=== PATIENT | female | born 1935 | race Caucasian/White ===

== ENCOUNTER 2024-03-31 15:45 | Inpatient (IN) | payer OTHER ==
[2024-03-31] MEDS ORDERED: NA CHLORIDE 0.9% 500 ML ONE (16:09)
[2024-03-31 16:48] LABS: Absolute Basophils 0.1 K/uL (0-0.5); Absolute Eosinophils 0.1 K/uL (0-0.5); Absolute Lymphocytes (CBC) 2.6 K/uL (0.7-4.9); Absolute Monocytes 1.3 K/uL (0.1-1.3); Absolute Neutrophil 9.4 K/uL (1.8-8.0); Basophils % 0.5 % (0-1.3); Eosinophils % 1.1 % (0-4.4); Hematocrit 42.3 % (36.0-45.0); Hemoglobin 13.7 g/dL (12.0-15.0); Lymphocytes % 19.4 % (15.3-44.8); MCH 28.6 pg (27.0-35.0); MCHC 32.5 g/dL (32.0-36.0); MPV 9.1 fL (7.6-11.3); Monocytes % 9.9 % (3.3-12.3); Neutrophils % 69.1 % (41.7-73.7); Nucleated Red Blood Cells % 0.2 % (0-0); Platelets 297 thou/uL (152-406); Red Cell Distribution Width 15.4 % (12.1-15.2)
[2024-03-31 17:07] LABS: ALT/SGPT 16 U/L (13-56); Albumin 3.5 g/dL (3.4-5.0); Albumin/Globulin Ratio 1.1 (1.1-1.8); Alkaline Phosphatase 97 U/L (45-117); Anion Gap 9.8 mEq/L (5.0-15.0); BUN Blood Urea Nitrogen 12 mg/dL (7-18); Bicarbonate 28 mEq/L (21-32); Bilirubin Total 0.8 mg/dL (0.2-1.0); Globulin 3.3 g/dL (2.3-3.5); Glomerular Filtration Rate 30 ml/min (=/>90); Glucose Level 309 mg/dL (74-106); Magnesium 2.1 mg/dL (1.6-2.4); NT PRO-BNP 4009 pg/mL (<450); Potassium 3.8 mEq/L (3.5-5.1); Protein, Total 6.8 g/dL (6.4-8.2); Sodium Level 137 mEq/L (136-145); Troponin High Sensitivity 33.9 pg/mL (<58.9)
[2024-03-31 17:08] LABS: AST/SGOT < 10 U/L (15-37)
--- NOTE | 2024-03-31 17:55 | EDPHYS ---
Physician Documentation [facility] Name: Hong Groves Age: 89 yrs Sex: Female : 1935 Arrival Date: 03/31/2024 Time: 15:45 Bed 3 Private MD: ED Physician Lauren Vidales HPI: 03/31 16:18 This 89 yrs old Female presents to ER via Wheelchair with complaints of Weakness - sd2 altered and sweaty. 16:18 89 yo F presents with CC of generalized weakness. Family at reports patient was sd2 sitting down eating a sandwich and became generally weak and sweaty. Upon arrival, patient's blood pressure reported to be low at 57/45. Pt is on BP medication with no recent changes and has taken her medication today. Denies any fever or recent illness aside from a cough 2 days ago. No known sick contacts. No n/v/d or urinary symptoms.. Historical: - Allergies: 16:22 Aspirin; rs5 - PMHx: 16:22 ANGIOEDEMA; Atrial Fib; Hyperlipidemia; Hypertension; Dementia; Diabetes mellitus; rs5 - PSHx: 16:22 pacemaker (Hypertension); rs5 - Immunization history:: Adult Immunizations up to date. - Infectious Disease History:: Denies. - Social history:: Smoking status: . ROS: 16:18 Constitutional: Negative for fever, chills, and weight loss, Eyes: Negative for injury, sd2 pain, redness, and discharge, Cardiovascular: Negative for chest pain, palpitations, and edema, Respiratory: Negative for shortness of breath, wheezing, positive for cough Abdomen/GI: Negative for abdominal pain, nausea, vomiting, diarrhea. MS/Extremity: Negative for injury and deformity, Skin: Negative for injury, rash, and discoloration, Neuro: Negative for headache, numbness and tingling. Positive for weakness. Exam: 16:18 Constitutional: This is a well developed, well nourished patient who is awake, alert, sd2 and in no acute distress. Head/Face: Normocephalic, atraumatic. Eyes: EOMI, normal conjunctiva bilaterally Chest/axilla: Normal chest wall appearance and motion. Nontender with no deformity. Cardiovascular: Regular rate and rhythm with a normal S1 and S2. No gallops, murmurs, or rubs. 2+ distal pulses. Respiratory: Lungs have equal breath sounds bilaterally, clear to auscultation and percussion. No rales, rhonchi or wheezes noted. No increased work of breathing, no retractions or nasal flaring. Abdomen/GI: Soft, non-tender, with normal bowel sounds. No guarding or rebound. No evidence of tenderness throughout. Skin: Warm, dry with normal turgor. Normal color with no rashes, no lesions, and no evidence of cellulitis. MS/ Extremity: Pulses equal, no cyanosis. Neurovascular intact. Full, normal range of motion. Neuro: Awake and alert, GCS 15, oriented to person, place, time, and situation. Cranial nerves II-XII grossly intact. Motor strength 5/5 in all extremities. Sensory grossly intact. Cerebellar exam normal. Psych: Awake, alert, with orientation to person, place and time. Behavior, mood, and affect are within normal limits. 16:18 ECG was reviewed by the Attending Physician. A-fib, rate 66, no STEMI criteria or ST-T wave changes Vital Signs: 15:59 BP 57 / 45; Pulse 67; Weight 59.87 kg; Height 5 ft. 6 in. ; ap3 16:21 BP 94 / 65; Pulse 74; Resp 18; Pulse Ox 98% on R/A; rs5 17:00 BP 102 / 62; Pulse 62; Resp 16; Pulse Ox 100% on R/A; ph 17:30 BP 98 / 61; Pulse 61; Resp 18; Pulse Ox 99% on R/A; ph 18:00 BP 105 / 65; Pulse 61; Resp 18; Pulse Ox 100% on R/A; ph 18:30 BP 112 / 71; Pulse 61; Resp 18; Pulse Ox 99% on R/A; ph 18:58 BP 110 / 71; Pulse 61; Resp 18; Pulse Ox 99% on R/A; ph 21:23 BP 117 / 80; Pulse 68; Resp 17; Temp 98.2; Pulse Ox 99% ; Pain 0/10; bm8 15:59 Body Mass Index 21.31 (59.87 kg, 167.64 cm) ap3 21:23 Pain Scale: Adult bm8 Alden Coma Score: 21:23 Eye Response: spontaneous(4). Motor Response: obeys commands(6). Verbal Response: bm8 oriented(5). Total: 15. MDM: 16:07 Patient medically screened. sd2 16:21 Data reviewed: vital signs, nurses notes, lab test result(s), EKG, radiologic studies. sd2 16:23 Historians other than the Patient: Daughter/Son: provides further history at . sd2 17:50 Care significantly affected by the following chronic conditions: Diabetes, sd2 Hypertension, Congestive Heart Failure, Dementia. Counseling: I had a detailed discussion with the patient and/or guardian regarding the historical points, exam findings, and any diagnostic results supporting the discharge/admit diagnosis, lab results, radiology results, the need for further work-up and treatment in the hospital. ED course: Presentation consistent with CHF exacerbation with elevated BNP. However, with borderline blood pressures, no further IVFs given or diuresis. Pt to be admitted for further management at this time. . 17:54 ED course: No signs of infectious process at this time to indicate need for continued sd2 sepsis workup. Bolus held due to fluid overload and MAP maintaining at 75. . 03/31 16:18 Order name: CBC with Diff; Complete Time: 17:09 sd2 03/31 16:18 Order name: CMP; Complete Time: 17:09 sd2 03/31 16:18 Order name: Magnesium; Complete Time: 17:09 sd03/31 16:18 Order name: Troponin High Sensitivity; Complete Time: 17:09 sd2 03/31 16:18 Order name: BNP; Complete Time: 17:09 sd2 03/31 16:18 Order name: Lactate w/ 2H reflex if indic.; Complete Time: 17:31 03/31 16:18 Order name: Procalcitonin; Complete Time: 17:31 sd2 03/31 16:18 Order name: Urinalysis w/ reflexes sd2 03/31 16:18 Order name: Glucose, Ancillary Testing; Complete Time: 17:09 EDMS 03/31 19:11 Order name: Ghost Lactate-NO COLLECT Timer EDMS 03/31 19:45 Order name: Lactate w/ 2H reflex if indic. kd3 03/31 20:47 Order name: Lactate Sepsis 2 HR Follow-up EDMS 03/31 16:18 Order name: XRAY Chest (1 view) sd2 03/31 16:18 Order name: EKG - Nurse/Tech; Complete Time: 16:25 sd2 03/31 16:18 Order name: Orthostatics; Complete Time: 21:22 sd2 Administered Medications: 16:25 Drug: NS 0.9% IV 500 ml IV at bolus once Route: IV; Rate: bolus; Site: left antecubital;rs5 21:22 Follow up: Response: No adverse reaction; IV Status: Completed infusion; IV Intake: bm8 500ml Disposition Summary: 03/31/24 17:54 Hospitalization Ordered Notes: Hospitalization Status: Inpatient Admission sd2 Provider: Kristi Simons sd2 Location: Telemetry/MedSurg (Inpatient) sd2 Condition: Stable sd2 Problem: new sd2 Symptoms: have improved sd2 Bed/Room Type: [facility] Room Assignment: 415(03/31/24 21:08) Diagnosis - CHF Exacerbation sd2 - Hypotension sd2 - Lactic acidosis sd2 Forms: - Medication Reconciliation Form sd2 - SBAR form sd2 - Leadership Thank You Letter sd2 Signatures: Dispatcher [employer] EDJudith Espino, KULDEEP RN Lauren Mccray MD MD sd2 Wilton Harper RN RN rs5 Mike Rojo RN bm8 Corrections: (The following items were deleted from the chart) 16:19 16:19 CBC+H.LAB.BRZ ordered. EDMS EDMS 16:19 16:19 COMPREHENSIVE METABOLIC PANEL+C.LAB.BRZ ordered. EDMS EDMS 16:19 16:19 MAGNESIUM+C.LAB.BRZ ordered. EDMS EDMS 16:19 16:19 Troponin High Sensitivity+C.LAB.BRZ ordered. EDMS EDMS 16:19 16:19 PROBNP+C.LAB.BRZ ordered. EDMS EDMS 16:19 16:19 LACTATE+C.LAB.BRZ ordered. EDMS EDMS 16:19 16:19 PCT+C.LAB.BRZ ordered. EDMS EDMS 16:19 16:19 Urinalysis+U.LAB.BRZ ordered. EDMS EDMS 16:19 16:19 Chest Single View+RAD.RAD.BRZ ordered. EDMS EDMS 21:08 17:54 sd2 kl
--- NOTE | 2024-03-31 17:55 | ER ---
Nurse's Notes [facility] Name: Hong Groves Age: 89 yrs Sex: Female : 1935 Arrival Date: 03/31/2024 Time: 15:45 Bed 3 Private MD: Diagnosis: CHF Exacerbation;Hypotension;Lactic acidosis Presentation: 03/31 15:59 Acuity: ARIANNE 2 ap3 16:07 Chief complaint: Patient's son or daughter states: patient has been getting ap3 increasingly weak over the last few days and sleeping a lot more that normal, but today after having a peanut butter and jelly sandwhich she was increasingly weak. Coronavirus screen: At this time, the client does not indicate any symptoms associated with coronavirus-19. Ebola Screen: No symptoms or risks identified at this time. Initial Sepsis Screen: Does the patient meet any 2 criteria? Systolic BP < 90 mmHg. Mean Arterial Pressure (MAP) < 65. Risk Assessment: Do you want to hurt yourself or someone else? Patient reports no desire to harm self or others. Onset of symptoms is unknown. 16:07 Method Of Arrival: Wheelchair ap3 16:07 Initial Sepsis Screen: Does the patient have a suspected source of infection? No. rs5 Patient's initial sepsis screen is negative. 18:59 Initial Sepsis Screen: Does the patient have a suspected source of infection? No. ph Patient's initial sepsis screen is negative. Triage Assessment: 16:08 General: Appears distressed, ill, Behavior is quiet. Neuro: Level of Consciousness is ap3 lethargic, Oriented to person, Weakness Reports weakness. Cardiovascular: Patient's skin is warm and dry. Respiratory: Airway is patent Respiratory effort is even, unlabored, Respiratory pattern is regular, symmetrical. Derm: Skin is diaphoretic. Historical: - Allergies: 16:22 Aspirin; rs5 - PMHx: 16:22 ANGIOEDEMA; Atrial Fib; Hyperlipidemia; Hypertension; Dementia; Diabetes mellitus; rs5 - PSHx: 16:22 pacemaker (Hypertension); rs5 - Immunization history:: Adult Immunizations up to date. - Infectious Disease History:: Denies. - Social history:: Smoking status: . Screenin:00 [facility] ED Fall Risk Assessment (Adult) History of falling in the last 3 months, rs5 including since admission No falls in past 3 months (0 pts) Confusion or Disorientation No (0 pts) Intoxicated or Sedated No (0 pts) Impaired Gait No (0 pts) Mobility Assist Device Used No (0 pt) Altered Elimination No (0 pt) Score/Fall Risk Level 0 - 2 = Low Risk Oriented to surroundings, Maintained a safe environment. Abuse screen: Denies threats or abuse. Nutritional screening: No deficits noted. Tuberculosis screening: No symptoms or risk factors identified. Assessment: 16:00 General: Appears in no apparent distress. uncomfortable, Behavior is calm, cooperative. rs5 Pain: Denies pain. Neuro: Level of Consciousness is awake, alert, obeys commands, Oriented to person, place, time, situation. Cardiovascular: Patient's skin is warm and dry. Respiratory: Airway is patent Respiratory effort is even, unlabored, Respiratory pattern is regular, symmetrical. GI: Abdomen is round non-distended, Abd is soft and non tender X 4 quads. GI: Reports bloody stool. : No signs and/or symptoms were reported regarding the genitourinary system. EENT: No signs and/or symptoms were reported regarding the EENT system. Derm: Skin is intact, Skin is pink, warm \T\ dry. Musculoskeletal: Range of motion: intact in all extremities, pt reports generalized weakness. 18:57 Reassessment: Patient appears in no apparent distress at this time. Patient and/or ph family updated on plan of care and expected duration. Pain level reassessed. 21:23 Reassessment: Patient appears in no apparent distress at this time. No changes from bm8 previously documented assessment. Patient and/or family updated on plan of care and expected duration. Pain level reassessed. Patient is alert, oriented x 3, equal unlabored respirations, skin warm/dry/pink. Patient denies pain at this time. Patient states feeling better. Patient states symptoms have improved. Vital Signs: 15:59 BP 57 / 45; Pulse 67; Weight 59.87 kg; Height 5 ft. 6 in. ; ap3 16:21 BP 94 / 65; Pulse 74; Resp 18; Pulse Ox 98% on R/A; rs5 17:00 BP 102 / 62; Pulse 62; Resp 16; Pulse Ox 100% on R/A; ph 17:30 BP 98 / 61; Pulse 61; Resp 18; Pulse Ox 99% on R/A; ph 18:00 BP 105 / 65; Pulse 61; Resp 18; Pulse Ox 100% on R/A; ph 18:30 BP 112 / 71; Pulse 61; Resp 18; Pulse Ox 99% on R/A; ph 18:58 BP 110 / 71; Pulse 61; Resp 18; Pulse Ox 99% on R/A; ph 21:23 BP 117 / 80; Pulse 68; Resp 17; Temp 98.2; Pulse Ox 99% ; Pain 0/10; bm8 15:59 Body Mass Index 21.31 (59.87 kg, 167.64 cm) ap3 21:23 Pain Scale: Adult bm8 Alden Coma Score: 21:23 Eye Response: spontaneous(4). Motor Response: obeys commands(6). Verbal Response: bm8 oriented(5). Total: 15. ED Course: 15:48 Patient arrived in ED. ra3 15:59 Triage completed. ap3 16:00 Patient has correct armband on for positive identification. Placed in gown. Bed in low rs5 position. Call light in reach. Side rails up X2. 16:00 No provider procedures requiring assistance completed. rs5 16:07 Lauren Vidales MD is Attending Physician. sd2 16:19 Wilton Harper, RN is Primary Nurse. rs5 16:25 Initial lab(s) drawn, by me, sent to lab. EKG done, by ED staff, reviewed by Wilton Harper RN. Inserted saline lock: 18 gauge in left antecubital area, using aseptic technique. Blood collected. Flushed with 10 mL NS. 16:38 Arm band placed on Patient placed in an exam room, on a stretcher, on academic dean, ph on pulse oximetry. 17:23 XRAY Chest (1 view) In Process Unspecified. EDMS 17:53 Kristi Simons MD is Hospitalizing Provider. sd2 18:59 Patient admitted, IV remains in place. ph 19:21 Primary Nurse role handed off by Wilton Harper, KULDEEP ty 19:37 Claribel Ngo, KULDEEP is Primary Nurse. kd3 22:06 Provided Education on: need for admission. jb4 Administered Medications: 16:25 Drug: NS 0.9% IV 500 ml IV at bolus once Route: IV; Rate: bolus; Site: left antecubital;rs5 21:22 Follow up: Response: No adverse reaction; IV Status: Completed infusion; IV Intake: bm8 500ml Medication: 16:38 VIS not applicable for this client. ph Intake: 21:22 IV: 500ml; Total: 500ml. bm8 Outcome: 17:54 Decision to Hospitalize by Provider. sd2 22:06 Admitted to Tele accompanied by nurse, via stretcher, room 415, jb4 22:06 Condition: stable 22:06 Instructed on the need for admit, 22:07 Patient left the ED. jb4 Signatures: Dispatcher [employer] EDMS Suzan Hart RN RN Jignesh Aaron, RN RN jb4 Ellie Adame RN RN [email or web address] Claribel Ngo RN RN [email or web address] Lauren Vidales MD MD sd2 Wilton Harper, RN RN rs5 Janet Albrecht Tylor ty McDonald, Brad RN RN bm8
--- NOTE | 2024-03-31 18:42 | RAD REPORT ---
EXAM DESCRIPTION: BRANDONChest Single View03/31/2024 5:21 pm CLINICAL HISTORY: hypotension COMPARISON: Chest Single View dated 11/20/2016; Chest Single View dated 02/06/2016; CHEST SINGLE VIEW d ated 08/09/2015; CHEST SINGLE VIEW dated 08/16/2014 TECHNIQUE: Portable AP view of the chest. FINDINGS: The lungs are clear. No pneumothorax or effusion. The cardiomediastinal contours are unre markable. IMPRESSION: No acute cardiopulmonary process.
--- NOTE | 2024-03-31 20:47 | P.HP ---
Certification for Inpatient With expected LOS: >2 Midnights Practitioner: I am a practitioner with admitting privileges, knowledge of patient current condition, hospital course, and medical plan of care. Services: Services provided to patient in accordance with Admission requirements found in Title 42 Section 412.3 of the Code of Federal Regulations Patient History Date of Service: 03/31/24 Reason for admission: weakness History of Present Illness: 89-year-old female with history of congestive heart failure, pacemaker placement, atrial fibrillation, hyperlipidemia, dementia presented via wheelchair with complaints of weakness. Daughter and patient live in a hotel. She reports that earlier today patient was seen slumped over clammy and appeared pale. She denies any fevers. But she does report having some dizziness and shortness of breath. Patient also reported having episode of loose stool and diarrhea. In the ER on arrival patient was noted to be hypotensive. Fluids were given. There was also concern for CHF exacerbation. She is being admitted for further workup Allergies aspirin Allergy (Verified 06/02/14 02:05) Anaphylaxis Home Medications: Clopidogrel Bisulfate [Plavix*] 75 mg PO DAILY 06/03/14 Furosemide [Lasix*] 40 mg PO DAILY 06/03/14 Simvastatin 40 mg PO BEDTIME 06/03/14 Metoprolol Succinate [Toprol Xl*] 50 mg PO DAILY 08/16/14 Amlodipine [Norvasc] 10 mg PO DAILY #90 tab 11/21/16 cloNIDine HCL [Catapres*] 0.1 mg PO TID #270 tab 11/21/16 - Past Medical/Surgical History Diabetic: No -: HTN -: Afib -: CAD -: high cholesterol -: skin Cancer -: cardiac stent x2 -: hysterectomy -: benign tumors removed L breast -: carpal tunnel sx nikita wrists -: foriegn object removed from stomach as child -: arthoscopic sx nikita knee sx -: benign brain tumor removed - Family History Father -: Heart disease, GI disease Mother -: Heart disease - Social History Alcohol use: Yes CD- Drugs: No Caffeine use: Yes Review of Systems 10-point ROS is otherwise unremarkable Respiratory: Shortness of Breath Neurological: Weakness Physical Examination - Physical Exam General: Alert, Oriented x2 (person and place) HEENT: Atraumatic, Normocephalic Neck: Supple Respiratory: Clear to auscultation bilaterally Cardiovascular: No edema, Normal pulses Gastrointestinal: Soft and benign, Non-distended Musculoskeletal: No clubbing, No swelling Integumentary: No rashes Neurological: Normal speech - Studies Laboratory Data (last 24 hrs) 03/31/24 03/31/24 16:25 16:25 WBC 13.50 H Hgb 13.7 Hct 42.3 Plt Count 297 Sodium 137 Potassium 3.8 BUN 12 Creatinine 1.64 H Glucose 309 H Magnesium 2.1 Total Bilirubin 0.8 AST < 10 L ALT 16 Alkaline Phosphatase 97 Assessment and Plan - Problems (Diagnosis) (1) Weakness Current Visit: Yes Status: Acute (2) CHF (congestive heart failure) Current Visit: Yes Status: Acute (3) Leukocytosis Current Visit: Yes Status: Acute - Plan 89-year-old female presented from home with complaints of not feeling well, and hypotension. Weakness --could be 2/2 poor PO intake, volume depletion, history of diarrhea --consult PT OT when more stable Leukocytosis --await UA, cxr clear, afebrile --recent diarrhea Diabetes --fsbs, ssi Hypotension --could be 2/2 volume depletion --improved after 500cc bolus in ED --keep on telemetry CHF Elevated BNP --Chest x-ray showed no acute cardiopulmonary process history of dementia --mental status at baseline IVY/CKD --unclear baseline creat --repeat labs in AM DVT: Lovenox Code:full - Advance Directives Does patient have a Living Will: Yes Does patient have a Durable POA for Healthcare: Yes
[2024-03-31] MEDS ORDERED: ACETAMINOPHEN 500 MG TAB PO PRN (22:24)
[2024-03-31 22:34] VITALS: BMI 21.2
[2024-04-01 06:25] LABS: Calcium Oxalate Crystals- Ur Many /HPF (None Seen); Sqamous Epithelial <5 /HPF (None Seen); Urine Bacteria 20-50 /HPF (<20); Urine Bilirubin NEGATIVE (Negative); Urine Blood Negative (Negative); Urine Clarity Extremely Turbid (Clear); Urine Color Yellow (Yellow); Urine Culture Reflex Order NOT NEEDED; Urine Glucose 1+ (Negative); Urine Ketones NEGATIVE (Negative); Urine Microscopic Reflex YN ORDER UMIC; Urine Mucus Slight /HPF (None Seen); Urine Nitrite NEGATIVE (Negative); Urine Protein 1+ (Negative); Urine RBC None Seen /HPF (None Seen); Urine Urobilinogen Normal (Normal); Urine WBC <5 /HPF (<5); Urine pH 5.5 (5.0-7.0)
[2024-04-01 06:34] LABS: Absolute Basophils 0.1 K/uL (0-0.5); Absolute Eosinophils 0.2 K/uL (0-0.5); Absolute Lymphocytes (CBC) 2.7 K/uL (0.7-4.9); Absolute Monocytes 1.2 K/uL (0.1-1.3); Absolute Neutrophil 7.8 K/uL (1.8-8.0); Basophils % 0.6 % (0-1.3); Eosinophils % 1.9 % (0-4.4); Hematocrit 37.5 % (36.0-45.0); Hemoglobin 12.4 g/dL (12.0-15.0); Lymphocytes % 22.2 % (15.3-44.8); MCH 29.1 pg (27.0-35.0); MCV 88.1 fL (80-100); MPV 8.8 fL (7.6-11.3); Monocytes % 10.4 % (3.3-12.3); Neutrophils % 64.9 % (41.7-73.7); Nucleated Red Blood Cells % 0.1 % (0-0); Platelets 229 thou/uL (152-406); RBC Red Blood Cell Count 4.25 M/uL (3.86-4.86)
[2024-04-01 06:56] LABS: ALT/SGPT 15 U/L (13-56); Albumin 3.2 g/dL (3.4-5.0); Albumin/Globulin Ratio 1.1 (1.1-1.8); Alkaline Phosphatase 84 U/L (45-117); Anion Gap 8.1 mEq/L (5.0-15.0); BUN Blood Urea Nitrogen 21 mg/dL (7-18); Bicarbonate 31 mEq/L (21-32); Bilirubin Total 0.7 mg/dL (0.2-1.0); Globulin 2.9 g/dL (2.3-3.5); Glomerular Filtration Rate 34 ml/min (=/>90); Glucose Level 178 mg/dL (74-106); Potassium 4.1 mEq/L (3.5-5.1); Protein, Total 6.1 g/dL (6.4-8.2); Sodium Level 139 mEq/L (136-145)
[2024-04-01 06:57] LABS: AST/SGOT < 10 U/L (15-37)
[2024-04-01] MEDS: ENOXAPARIN 30 MG/0.3 ML SQ SCH (09:03)
--- NOTE | 2024-04-01 11:44 | EKG ---
Test Date: 2024-03-31 Test Time: 16:10:41 Catechist: RICARDO MEASUREMENT RESULTS: Intervals: Rate: 66 CT: QRSD: 100 QT: 418 QTc: 438 [place]: P: CT: QRS: 68 T: -62 INTERPRETIVE STATEMENTS: Atrial fibrillation with premature ventricular or aberrantly conducted complexes ST & T wave abnormality, consider inferior ischemia or digitalis effect ST & T wave abnormality, consider anterolateral ischemia or digitalis effect Abnormal ECG Compared to ECG 11/21/2016 06:42:31 Ventricular premature complex(es) now present Sinus bradycardia no longer present ST (T wave) deviation still present Possible ischemia still present Electronically Signed On 04-01-24 11:42:39 CDT by Chris Romano
--- NOTE | 2024-04-01 14:50 | P.PN ---
Subjective Date of Service: 04/01/24 Chief Complaint: weakness Pt is resting comfortably in bed. She is feeling better. WBC is 12 <- 13. She complains of loose stool. Waiting for S Cdiff. No other complaints. Review of Systems General: Unremarkable Eyes: Unremarkable ENT: Unremarkable Respiratory: Unremarkable Cardiovascular: Unremarkable Gastrointestinal: Unremarkable Genitourinary: Unremarkable Musculoskeletal: Unremarkable Integumentary: Unremarkable Neurological: Unremarkable Lymphatics: Unremarkable Physical Examination - Vital Signs Temperature: 97.7 F Blood Pressure: 134/66 Pulse: 65 Respirations: 16 Pulse Ox (%): 97 - Physical Exam General: Alert, In no apparent distress, Oriented x3 HEENT: Atraumatic, Normocephalic, PERRLA Neck: Supple, 2+ carotid pulse no bruit, JVD not distended Respiratory: Clear to auscultation bilaterally, Normal air movement Cardiovascular: No edema, Normal pulses, Regular rate/rhythm Capillary refill: <2 Seconds Gastrointestinal: Normal bowel sounds, Soft and benign, Non-distended Musculoskeletal: No clubbing, No swelling Integumentary: No rashes, No breakdown, No significant lesion Neurological: Normal gait, Normal speech, Normal strength at 5/5 x4 extr Lymphatics: No axilla or inguinal lymphadenopathy - Studies Laboratory Data (last 24 hrs) 03/31/24 03/31/24 16:25 16:25 WBC 13.50 H Hgb 13.7 Hct 42.3 Plt Count 297 Sodium 137 Potassium 3.8 BUN 12 Creatinine 1.64 H Glucose 309 H Magnesium 2.1 Total Bilirubin 0.8 AST < 10 L ALT 16 Alkaline Phosphatase 97 Assessment And Plan - Plan Weakness: Likely due to volume depletion. Pt complained of dirrhea or lose stool . Will r/o C diff. Consulted PT/OT. Diarrhea: Will r/o C diff. WBC is 12 <- 13. Diabetes: Continue accuchek, SSI and ADA diet. Hypotension: Resolved with gentle hydration. Will monitor. Hx of CHF: Pt has elevated BNP. Chest x-ray showed no acute cardiopulmonary process. Continue home meds. History of dementia: At baseline. Continue supportive care. IVY on CKD: Cr is 1.49. Will continue gentle hydration, avoid nephrotoxins and monitor renal function. DVT ppx: Lovenox Code:full Dispo: Pending hospital course
[2024-04-01] MEDS ORDERED: ACETAMINOPHEN 500 MG TAB PO PRN (19:51)
[2024-04-01] MEDS: INSULIN REGULAR (HUMAN) 100 UNIT/ML SQ ONE (20:07)
[2024-04-01] MEDS: DIGOXIN 0.125 MG TABLET PO ONE (22:07)
[2024-04-02] MEDS: SOTALOL HCL 80 MG TAB PO SCH (08:20)
[2024-04-02] MEDS: FUROSEMIDE 40 MG TABLET PO SCH (08:20)
[2024-04-02] MEDS: POTASSIUM CL SA 10 MEQ TAB PO SCH (08:21)
[2024-04-02] MEDS: RIVAROXABAN 20 MG TABLET PO SCH (08:21)
[2024-04-02] MEDS ORDERED: DILTIAZEM HCL 300 MG PO SCH (09:00)
[2024-04-02] MEDS ORDERED: DIGOXIN 0.125 MG TABLET PO SCH (09:00)
[2024-04-02] MEDS: SPIRONOLACTONE 25 MG TABLET PO SCH (13:57)
[2024-04-02] MEDS: INSULIN REGULAR (HUMAN) 100 UNIT/ML SQ SCH (16:36)
[2024-04-02] MEDS: cloNIDine HCL 0.1 MG TAB PO SCH (16:36)
[2024-04-02] MEDS ORDERED: INSULIN REGULAR (HUMAN) 100 UNIT/ML SQ ONE (19:45)
[2024-04-02] MEDS: ATORVASTATIN 20 MG TAB PO SCH (21:12)
--- NOTE | 2024-04-02 21:31 | P.PN ---
Subjective Date of Service: 04/02/24 Chief Complaint: WEAK, LOW BP ON ADMISSION Subjective: Improving ROBERT COMES IN WITH HYPOTENSION. SHE IS ON MANY MEDS FOR BP AND CHF. LAST CHF EPISODE WAS ABOUT 3 YEARS AGO. SHE HAS NO CHEST PAIN. SHE HAS ALZ. DISEASE. FOR TWO DAYS HOSPITALISTS TOOK CARE OF HER. FAMILY TOLD THEM THAT HER PRIMARY DOCTOR IS DR. RAO. I GOT A PHONE CALL THIS AM TO TAKE CARE OF HER. SHE IS STABLE AND GEN WEAK. SHE HAS NOT HAD HER HOME MEDS SO SHE HAD TACHYCARDIA OVER NIGHT. SHE HAS HAD A FIB OFF AND ON. Review of Systems 10-point ROS is otherwise unremarkable General: Weakness Physical Examination - Vital Signs Temperature: 97.3 F Blood Pressure: 119/70 Pulse: 63 Respirations: 18 Pulse Ox (%): 97 - Physical Exam General: Mild distress HEENT: Atraumatic, PERRLA, EOMI Neck: Supple, JVD not distended Respiratory: Clear to auscultation bilaterally, Normal air movement Cardiovascular: Regular rate/rhythm, Normal S1 S2 Gastrointestinal: Normal bowel sounds, No tenderness Musculoskeletal: No tenderness Integumentary: No rashes Neurological: Normal speech, Normal tone, Normal affect Lymphatics: No axilla or inguinal lymphadenopathy - Studies Medications List Reviewed: Yes Assessment And Plan - Current Problems (Diagnosis) (1) Hypovolemic shock Current Visit: Yes Status: Acute Plan: SHE HAD LOW BP ON ADMISSION DOWN TO 70 SYSTOLIC. SHE WAS ON LASIX, POTASSIUM, CARDIZEM. DIGOXIN, LOSARTAN AND CLONIDINE AT 0.2 MG PO BID. I STOPPED POTASSIUM, CARDIZEM, LOSARTAN AND REDUCED CLONIDINE TO 0.1 MG PO BID AFTER BP WENT HIGH TO 190 SYSTOLIC AFTER TWO DAYS. I ADDED SPIRONOLACTONE IT WILL IS POTASSIUM SPARING AND WILL TAKE CARE OF CHF IN ADDITION TO HYPERALDOSTERONISM. MANY UNCONTROLLED BP PATIENTS HAVE THIS ISSUE AND DAUGHTER SAYS BP HAS BEEN HARD TO CONTROL. WILL TAPER OFF CLONIDINE IF CAN SHE WILL BE ON LOT LESSER MEDS. (2) History of CHF (congestive heart failure) Current Visit: Yes Status: Resolved (3) Dehydration Current Visit: Yes Status: Resolved (4) Rapid atrial fibrillation Current Visit: Yes Status: Acute Plan: INSTEAD OF DIGOXIN AND CARDIZEM PLUS METOPROLOL SHE WILL BE BETTER OFF WITH SOTALOL. SHE IS STABLE AND MAY GO HOME IN AM IF FEELS WELL.
[2024-04-03 05:56] LABS: Absolute Basophils 0.1 K/uL (0-0.5); Absolute Eosinophils 0.3 K/uL (0-0.5); Absolute Lymphocytes (CBC) 2.3 K/uL (0.7-4.9); Basophils % 0.6 % (0-1.3); Eosinophils % 3.4 % (0-4.4); Hematocrit 36.6 % (36.0-45.0); Hemoglobin 12.3 g/dL (12.0-15.0); Lymphocytes % 26.8 % (15.3-44.8); MCH 29.4 pg (27.0-35.0); MCHC 33.6 g/dL (32.0-36.0); MCV 87.6 fL (80-100); Neutrophils % 57.2 % (41.7-73.7); Nucleated Red Blood Cells % 0.1 % (0-0); Platelets 218 thou/uL (152-406); RBC Red Blood Cell Count 4.18 M/uL (3.86-4.86); Red Cell Distribution Width 14.9 % (12.1-15.2)
[2024-04-03 06:07] LABS: Anion Gap 8.1 mEq/L (5.0-15.0); Potassium 4.1 mEq/L (3.5-5.1)
[2024-04-03] MEDS: GLIPIZIDE S.A. 5 MG TAB PO SCH (08:27)
[2024-04-03] MEDS: cloNIDine HCL 0.1 MG TAB PO SCH (08:27)
[2024-04-03 08:28] VITALS: BP 153/85
[2024-04-03 08:49] VITALS: TEMP 97
[2024-04-03 11:02] VITALS: O2SAT 97
--- NOTE | 2024-04-03 13:29 | EKG ---
Test Date: 2024-04-03 Test Time: 10:14:51 Head Tennis Professional: NINA MEASUREMENT RESULTS: Intervals: Rate: 64 W[place]: QRSD: 96 QT: 488 QTc: 503 [place]: P: W[place]: QRS: 19 T: -89 INTERPRETIVE STATEMENTS: Junctional rhythm with premature ventricular complexes or fusion complexes T wave abnormality, consider inferior ischemia T wave abnormality, consider anterolateral ischemia Prolonged QT Abnormal ECG Compared to ECG 03/31/2024 16:10:41 Junctional rhythm now present Fusion complex(es) now present T-wave abnormality now present Prolonged QT interval now present Atrial fibrillation no longer present ST (T wave) deviation no longer present Possible ischemia still present Electronically Signed On 04-03-24 13:28:35 CDT by Torsten Stout
[2024-04-03] MEDS ORDERED: SPIRONOLACTONE 25 MG TABLET PO SCH (13:42)
--- NOTE | 2024-04-06 17:09 | EKG ---
Test Date: 2024-04-03 Test Time: 09:40:31 Car Shifter: SANTY MEASUREMENT RESULTS: Intervals: Rate: 68 RI: QRSD: 92 QT: 442 QTc: 469 [place]: P: RI: QRS: 50 T: -79 INTERPRETIVE STATEMENTS: Atrial fibrillation with premature ventricular or aberrantly conducted complexes T wave abnormality, consider anterior ischemia or digitalis effect Abnormal ECG Compared to ECG 03/31/2024 16:10:41 T-wave abnormality now present ST (T wave) deviation no longer present Possible ischemia still present Electronically Signed On 04-06-24 16:59:58 CDT by Torsten Stout
--- NOTE | 2024-04-08 12:45 | P.DS ---
Admission Date: 03/31/24 Discharge Date: 04/08/24 Disposition: ROUTINE DISCHARGE Discharge Condition: GOOD Reason for Admission: WEAK, LOW BP ON ADMISSION - Problems (1) Hypovolemic shock Status: Acute (2) History of CHF (congestive heart failure) Status: Resolved (3) Dehydration Status: Resolved (4) Rapid atrial fibrillation Status: Acute Brief History of Present Illness: Hong came with hypotension and dehydration. She is on many meds. I changed to simplified and she is doing great with lasix, spironolactone and sotalol. she is doing great and stable to go home. Vital Signs/Physical Exam: Temp Pulse Resp BP Pulse Ox 97 F 65 16 153/85 H 97 04/03/24 08:00 04/03/24 08:27 04/03/24 08:00 04/03/24 08:27 04/03/24 08:00 Laboratory Data at Discharge: WBC 8.70 thou/uL (4.3-10.9) 04/03/24 05:21 Hgb 12.3 g/dL (12.0-15.0) 04/03/24 05:21 Hct 36.6 % (36.0-45.0) 04/03/24 05:21 Plt Count 218 thou/uL (152-406) 04/03/24 05:21 Sodium 137 mEq/L (136-145) 04/03/24 05:21 Potassium 4.1 mEq/L (3.5-5.1) 04/03/24 05:21 BUN 32 mg/dL (7-18) H 04/03/24 05:21 Creatinine 1.27 mg/dL (0.55-1.02) H 04/03/24 05:21 Glucose 200 mg/dL (74-106) H 04/03/24 05:21 Magnesium 2.0 mg/dL (1.6-2.4) 04/03/24 05:21 Total Bilirubin 0.7 mg/dL (0.2-1.0) 04/01/24 05:46 AST < 10 U/L (15-37) L 04/01/24 05:46 ALT 15 U/L (13-56) 04/01/24 05:46 Alkaline Phosphatase 84 U/L (45-117) 04/01/24 05:46 LDL Cholesterol Direct 71 mg/dL (100-129) L 04/03/24 05:21 Home Medications: Atorvastatin Calcium 20 mg PO BEDTIME 03/31/24 Furosemide 40 mg PO DAILY 03/31/24 Glipizide [Glucotrol Xl] 10 mg PO SEECOM 03/31/24 Rivaroxaban [Xarelto] 20 mg PO DAILY 03/31/24 Sotalol HCl [Betapace*] 80 mg PO BID 6AM 6PM #60 tab 04/03/24 Spironolactone [Aldactone*] 50 mg PO DAILY #90 tab 04/03/24 cloNIDine HCL [Catapres*] 0.1 mg PO BID #60 tab 04/03/24 New Medications: Spironolactone [Aldactone*] 50 mg PO DAILY #90 tab Sotalol HCl [Betapace*] 80 mg PO BID 6AM 6PM #60 tab cloNIDine HCL [Catapres*] 0.1 mg PO BID #60 tab Followup: Alfred Crawford MD [ACTIVE - CAN ADMIT] - 1-2 Weeks
== END 2024-04-03 11:02 | disposition home or self-care (01) | DRG 291 ==
LOC: ER 15:45 → ERHOLD 20:21 → 4TH 21:34
PROVIDERS: ADMIT Internal Medicine; ATTEND Internal Medicine
DX: I13.0 Hypertensive heart and chronic kidney disease with heart failure and stage 1 through stage 4 chronic kidney disease, or unspecified chronic kidney disease (principal); R57.1 Hypovolemic shock; E87.20 Acidosis, unspecified; Z59.01 Sheltered homelessness; N17.9 Acute kidney failure, unspecified; I50.9 Heart failure, unspecified; N18.9 Chronic kidney disease, unspecified; E11.22 Type 2 diabetes mellitus with diabetic chronic kidney disease; I48.91 Unspecified atrial fibrillation; E78.5 Hyperlipidemia, unspecified; E86.0 Dehydration; I95.9 Hypotension, unspecified; E86.9 Volume depletion, unspecified; E78.00 Pure hypercholesterolemia, unspecified; G30.9 Alzheimer's disease, unspecified; F02.80 Dementia in other diseases classified elsewhere, unspecified severity, without behavioral disturbance, psychotic disturbance, mood disturbance, and anxiety; Z88.6 Allergy status to analgesic agent; Z95.5 Presence of coronary angioplasty implant and graft; Z79.82 Long term (current) use of aspirin; Z79.84 Long term (current) use of oral hypoglycemic drugs; Z79.02 Long term (current) use of antithrombotics/antiplatelets; Z79.899 Other long term (current) drug therapy; Z90.710 Acquired absence of both cervix and uterus; Z85.828 Personal history of other malignant neoplasm of skin; Z95.810 Presence of automatic (implantable) cardiac defibrillator
CPT/HCPCS: 36415; 71045; 80048; 80053; 81001; 82947; 83036; 83605; 83735; 83880; 84145; 84484; 85025; 93005; 96360; 96361; 97116; 97161; 99285; J1650; J7040

== ENCOUNTER 2024-05-03 03:26 | Inpatient (IN) | payer OTHER ==
[2024-05-03] MEDS ORDERED: VANCOMYCIN 1 GM/VIAL ONE (04:09)
[2024-05-03] MEDS ORDERED: ONDANSETRON 4 MG/2 ML VIAL ONE (04:09)
[2024-05-03] MEDS ORDERED: ACETAMINOPHEN 500 MG TAB ONE (04:09)
[2024-05-03] MEDS ORDERED: dilTIAZem HCL 25 MG/5 ML VIAL IV ONE ×2 (04:10→06:54)
[2024-05-03] MEDS ORDERED: NA CHLORIDE 0.9% 2,000 ML ONE (04:11)
[2024-05-03] MEDS ORDERED: CEFEPIME 1 GM/VIAL ONE (04:11)
[2024-05-03] MEDS ORDERED: NA CHLORIDE 0.9% 100 ML ONE ×2 (04:11→06:54)
[2024-05-03] MEDS ORDERED: NA CHLORIDE 0.9% 250 ML ONE (04:11)
[2024-05-03 04:33] LABS: Absolute Lymphocytes (CBC) 1.2 K/uL (0.7-4.9); Absolute Monocytes 0.5 K/uL (0.1-1.3); Absolute Neutrophil 6.5 K/uL (1.8-8.0); Basophils % 0.3 % (0-1.3); Hematocrit 47.2 % (36.0-45.0); Hemoglobin 15.1 g/dL (12.0-15.0); Lymphocytes % 14.6 % (15.3-44.8); MCH 28.7 pg (27.0-35.0); MCHC 31.9 g/dL (32.0-36.0); MCV 89.9 fL (80-100); MPV 9.7 fL (7.6-11.3); Monocytes % 5.7 % (3.3-12.3); Neutrophils % 79.4 % (41.7-73.7); Nucleated Red Blood Cells % 0.1 % (0-0); Platelets 226 thou/uL (152-406); RBC Red Blood Cell Count 5.25 M/uL (3.86-4.86); Red Cell Distribution Width 15.6 % (12.1-15.2)
[2024-05-03 04:36] LABS: Specific Gravity 1.017 (1.005-1.030); Sqamous Epithelial None Seen /HPF (None Seen); Urine Bacteria None Seen /HPF (<20); Urine Bilirubin NEGATIVE (Negative); Urine Blood Negative (Negative); Urine Clarity Clear (Clear); Urine Color Yellow (Yellow); Urine Culture Reflex Order NOT NEEDED; Urine Glucose 4+ (Negative); Urine Ketones NEGATIVE (Negative); Urine Microscopic Reflex YN ORDER UMIC; Urine Mucus Slight /HPF (None Seen); Urine Nitrite NEGATIVE (Negative); Urine Protein 1+ (Negative); Urine RBC <5 /HPF (None Seen); Urine Urobilinogen Normal (Normal); Urine WBC <5 /HPF (<5); Urine pH 5.5 (5.0-7.0)
[2024-05-03 04:43] LABS: Arterial Blood Carboxyhemoglob 0.9 % (0-1.5); Blood Gas Oxyhemoglobin 91.4 % (94-97); Blood O2 Saturation 93.8 % (92-98.5)
[2024-05-03 04:54] LABS: PT Prothrombin Time 11.6 SECONDS (9.4-12.5); PTT, Activated Partial Thromb 28.5 SECONDS (24.3-36.9); Protime INR 1.04
[2024-05-03 04:56] LABS: ALT/SGPT 28 U/L (13-56); AST/SGOT 21 U/L (15-37); Albumin 4.2 g/dL (3.4-5.0); Alkaline Phosphatase 103 U/L (45-117); Anion Gap 14.2 mEq/L (5.0-15.0); BUN Blood Urea Nitrogen 38 mg/dL (7-18); Bicarbonate 23 mEq/L (21-32); Bilirubin Total 1.3 mg/dL (0.2-1.0); Creatine Phosphokinase 38 U/L (26-192); Globulin 4.3 g/dL (2.3-3.5); Glomerular Filtration Rate 28 ml/min (=/>90); Glucose Level 214 mg/dL (74-106); NT PRO-BNP 16083 pg/mL (<450); Potassium 5.2 mEq/L (3.5-5.1); Protein, Total 8.5 g/dL (6.4-8.2); Sodium Level 134 mEq/L (136-145); Troponin High Sensitivity 503.8 pg/mL (<58.9)
[2024-05-03 04:57] LABS: C-Reactive Protein < 2.90 mg/L (<3.00)
--- NOTE | 2024-05-03 05:51 | EDPHYS ---
Physician Documentation [facility] Name: Hong Groves Age: 89 yrs Sex: Female : 1935 Arrival Date: 05/03/2024 Time: 03:26 Bed 18 Private MD: ED Physician Cipriano Gomez HPI: 05/03 05:49 This 89 yrs old Female presents to ER via Wheelchair with complaints of sp4 Altered Mental Status. 15:57 Patient was brought in by her daughter for generalized weakness and Lethargy. Patient sp4 had to be picked out of the car and brought into ER in the Wheelchair. Patient ill appearing on arrival and not able to speak. . Grossly no signs of lateralizing weakness. . Historical: - Allergies: 03:45 Aspirin; rg5 - PMHx: 03:45 Atrial Fib; Dementia; diabetes mellitus; Hyperlipidemia; Hypertension; ANGIOEDEMA; rg5 - PSHx: 03:45 pacemaker (en); rg5 - Immunization history:: Adult Immunizations up to date, Client reports receiving the 2nd dose of the Covid vaccine. - Infectious Disease History:: Denies. - Social history:: Smoking status: Patient denies any tobacco usage or history of. - Family history:: not pertinent. ROS: 15:57 Constitutional: Negative for fever, chills, and weight loss, positive for generalized sp4 weakness, lethargy and altered mental status , full ROS not possible 15:57 All other systems are negative, 15:57 Unable to obtain ROS due to altered mental status, Exam: 08:15 Constitutional: This is a well developed, well nourished patient who is awake, alert, sp4 ill-appearing pale toxic appearing Head/Face: Normocephalic, atraumatic. Eyes: Pupils equal round and reactive to light, extra-ocular motions intact. Lids and lashes normal. Conjunctiva and sclera are not injected. Cornea within normal limits. Periorbital areas with no swelling, redness, or edema. ENT: Nares patent. No nasal discharge, no septal abnormalities noted. Tympanic membranes are normal and external auditory canals are clear. Oropharynx with no redness, swelling, or masses, exudates, or evidence of obstruction, uvula midline. Mucous membranes moist. Neck: Trachea midline, no thyromegaly or masses palpated, and no cervical lymphadenopathy. Supple, full range of motion without nuchal rigidity, or vertebral point tenderness. Chest/axilla: Normal chest wall appearance and motion. Nontender with no deformity. No lesions are appreciated. Cardiovascular: Regular rate and rhythm with a normal S1 and S2. No gallops, murmurs, or rubs. Normal PMI, no JVD. No pulse deficits. Respiratory: Lungs have equal breath sounds bilaterally, clear to auscultation and percussion. No rales, rhonchi or wheezes noted. No increased work of breathing, no retractions or nasal flaring. Abdomen/GI: Soft, with normal bowel sounds. No distension or tympany. No guarding or rebound. No evidence of tenderness throughout. Back: No spinal tenderness. No costovertebral tenderness. Skin: Warm, dry with normal turgor. Normal color with no rashes, no lesions, and no evidence of cellulitis. MS/ Extremity: Pulses equal, no cyanosis. Neurovascular intact. Full, normal range of motion. Neuro: Awake and alert, GCS 15, oriented to person, Cranial nerves II-XII grossly intact. Motor strength 5/5 in all extremities. Sensory grossly intact. 08:15 ECG was reviewed by the Attending Physician. EKG at 0 346 Vital Signs: 03:45 BP 145 / 95; Pulse 120; Resp 16; Temp 98.7(O); Pulse Ox 96% on R/A; Weight 58.97 kg; rg5 Height 5 ft. 6 in. ; Pain 0/10; 04:52 BP 139 / 106; Pulse 130; Resp 16; Pulse Ox 96% on 3 lpm NC; rg5 07:00 BP 119 / 86; Pulse 135; Resp 20; Pulse Ox 97% ; bp 08:03 BP 139 / 106; Pulse 118; Resp 18; Pulse Ox 100% ; bp 03:45 Body Mass Index 20.98 (58.97 kg, 167.64 cm) rg5 03:45 Pain Scale: Adult rg5 MDM: 03:49 Patient medically screened. sp4 05:49 ED course: IMPRESSION: No acute intracranial findings. No acute fracture or subluxation sp4 of the cervical spine. Indeterminate low-density lesion in the right lobe of the liver. Recommend nonemergent ultrasound. Right solid pulmonary nodule within the upper lobe measuring 3 mm. Per Fleischner Society Guidelines, if patient is low risk for malignancy, no routine follow-up imaging is recommended. If patient is high risk for malignancy, a non-contrast Chest CT at 12 months is optional. If performed and the nodule is stable at 12 months, no further follow-up is recommended. These guidelines do not apply to immunocompromised patients and patients with cancer.. 05:52 ED course: CLINICAL HISTORY: CHEST PAIN COMPARISON: None. TECHNIQUE: XR CHEST 1 VIEW [facility] 05/03/2024 3:48 AM CDT FINDINGS: Heart is mildly enlarged. Left single-chamber pacemaker is present. Lungs are clear without consolidation, atelectasis, mass or edema. There is no pleural effusion. There is no pneumothorax. There are no acute osseous findings. IMPRESSION: No pneumonia. Electronically signed by: John Jeffery MD 05/03/2024 05:26 AM CDT RP. 15:57 Data reviewed: vital signs, nurses notes. [facility] 05/03 03:48 Order name: Blood Culture Adult (2) [facility] 05/03 03:48 Order name: CBC with Diff; Complete Time: 05:03 [facility] 05/03 03:48 Order name: CMP; Complete Time: 05:03 4 05/03 03:48 Order name: Lactate w/ 2H reflex if indic.; Complete Time: 05:03 4 05/03 03:48 Order name: Protime (+inr); Complete Time: 05:03 4 05/03 03:48 Order name: Ptt, Activated; Complete Time: 05:03 4 05/03 03:48 Order name: Urinalysis w/ reflexes; Complete Time: 05:03 4 05/03 03:48 Order name: ABG; Complete Time: 05:03 sp4 05/03 03:48 Order name: Troponin High Sensitivity; Complete Time: 05:03 sp4 05/03 03:49 Order name: BNP; Complete Time: 05:03 sp4 05/03 03:49 Order name: CRP; Complete Time: 05:03 4 05/03 03:49 Order name: CK; Complete Time: 05:03 sp4 05/03 03:49 Order name: TSH; Complete Time: 05:03 sp4 05/03 04:42 Order name: Glucose, Ancillary Testing; Complete Time: 05:03 EDMS 05/03 05:24 Order name: SARS RAPID; Complete Time: 16:02 sp4 05/03 06:55 Order name: Ghost Lactate-NO COLLECT Timer; Complete Time: 16:02 EDOR 05/03 08:05 Order name: Lactate Sepsis 2 HR Follow-up; Complete Time: 16:02 EDOR 05/03 03:48 Order name: Chest Single View XRAY sp4 05/03 03:49 Order name: CT Traumagram (Head C Spine CAP wo con) 4 05/03 05:20 Order name: CONS Physician Consult EDOR 05/03 03:48 Order name: Accucheck; Complete Time: 04:57 sp4 05/03 03:48 Order name: Cardiac monitoring; Complete Time: 03:52 sp4 05/03 03:48 Order name: Cath; Complete Time: 04:02 sp4 05/03 03:48 Order name: EKG - Nurse/Tech; Complete Time: 03:52 sp4 05/03 03:48 Order name: IV Saline Lock - Large Bore; Complete Time: 03:52 sp4 05/03 03:48 Order name: Labs collected and sent; Complete Time: 03:52 sp4 05/03 03:48 Order name: O2 Per Protocol; Complete Time: 04:02 sp4 05/03 03:48 Order name: O2 Sat Monitoring; Complete Time: 03:52 4 05/03 03:48 Order name: VS Recheck; Complete Time: 04:02 sp4 05/03 03:48 Order name: Vital Signs; Complete Time: 03:52 sp4 05/03 03:49 Order name: Verma; Complete Time: 03:52 sp4 EC:15 Rate is 123 beats/min. Rhythm is irregularly irregular, A fib. QRS [place] is Normal. QRS sp4 interval is normal. QT interval is normal. No Q waves. Clinical impression: No evidence of ischemia. Interpreted by me. Reviewed by me. Administered Medications: 07:19 Discontinued: ns 0.9% (30 ml/kg) 30 ml/kg IV at bolus once; Sepsis Protocol rg5 04:00 Drug: Ondansetron IVP 4 mg IVP once; over 2 minutes Route: IVP; Site: right antecubital;rg5 05:09 Follow up: Response: No adverse reaction rg5 04:00 Drug: Cefepime IVPB 1 grams IVPB at 200 ml/hr once over 30 mins; (mix in NS 100 mL) rg5 Route: IVPB; Rate: 200 ml/hr; Infused Over: 30 mins; Site: right antecubital; 05:10 Follow up: IV Status: Completed infusion; IV Intake: 100ml rg5 04:55 Drug: NS 0.9% IV (30 ml/kg) 30 ml/kg IV at bolus once; Sepsis Protocol Route: IV; Rate: rg5 bolus; Site: right antecubital; 04:58 Drug: Acetaminophen PO 1000 mg PO once Route: PO; rg5 05:10 Follow up: Response: No adverse reaction rg5 05:00 Drug: vancoMYCIN IVPB 1 grams IVPB once over 2 hrs Route: IVPB; Infused Over: 2 hrs; rg5 Site: right antecubital; 07:19 Follow up: IV Status: Completed infusion; IV Intake: 250ml rg5 05:09 Drug: Diltiazem IVP 10 mg IVP once; Over 2 minutes Route: IVP; Site: right antecubital; rg5 07:18 Follow up: Response: No adverse reaction rg5 05:54 Drug: Heparin (IA-Bolus with thrombolytic) - HEParin IVP 60 units/kg IVP once; Max 4000 rg5 units {Co-Signature: [email or web address] (Jonathan Tracy RN).} Route: IVP; Site: right antecubital; 07:18 Follow up: Response: No adverse reaction rg5 06:07 Drug: Heparin (IA Drip) 12 units/kg/[place] - ([place] [address] units, D5W IV 500 ml) IV at rg5 calculated rate Per protocol; Max initial rate 1000 units/hr {Co-Signature: [email or web address] (Jonathan Tracy RN).} Route: IV; Rate: calculated rate; Site: right antecubital; 07:29 Drug: Diltiazem IV 5 mg/hr IV at calculated rate See Administration Instructions; bp (standard dilution 125 mg diltiazem mixed in 125 mL NS; final concentration 1mg/mL). Recommended max rate 15 mg/hr; Titrate 5 mg/hr as often as every 15 minutes to achieve goal (see titration policy); Goal parameter HR less than 100 bpm Route: IV; Rate: calculated rate; Site: right hand; Disposition Summary: 05/03/24 05:51 Hospitalization Ordered Notes: Hospitalization Status: Inpatient Admission sp4 Provider: Alfred Crawford sp4 Location: Intensive Care Unit sp4 Condition: Serious sp4 Problem: new sp4 Symptoms: have improved sp4 Bed/Room Type: Standard sp4 Room Assignment: 3-(05/03/24 06:01) cg Diagnosis - Unspecified atrial fibrillation sp4 - NSTEMI, Atrial fibrillation with RVR sp4 Forms: - Medication Reconciliation Form sp4 - SBAR form sp4 - Leadership Thank You Letter sp4 Signatures: Dispatcher [employer] Emily Ferrer, RN RN cg Gregorio Antonio RN RN Cipriano Goodman MD MD sp4 Jacques Salazar RN RN rg5 Jonathan Tracy RN [email or web address] Corrections: (The following items were deleted from the chart) 03:48 03:48 BLOOD CULTURE*+BA.LAB.BRZ ordered. EDMS EDMS 03:48 03:48 CBC+H.LAB.BRZ ordered. EDMS EDMS 03:48 03:48 COMPREHENSIVE METABOLIC PANEL+C.LAB.BRZ ordered. EDMS EDMS 03:48 03:48 LACTATE+C.LAB.BRZ ordered. EDMS EDMS 03:48 03:48 PROTIME (+INR)+COAG.LAB.BRZ ordered. EDMS EDMS 03:48 03:48 PTT, ACTIVATED+COAG.LAB.BRZ ordered. EDMS EDMS 03:48 03:48 Urinalysis+U.LAB.BRZ ordered. EDMS EDMS 03:48 03:48 Chest Single View+RAD.RAD.BRZ ordered. EDMS EDMS 03:48 03:48 Arterial Blood Gas+RC.LAB.BRZ ordered. EDMS EDMS 03:49 03:49 Troponin High Sensitivity+C.LAB.BRZ ordered. EDMS EDMS 06:01 05:51 sp4 cg
--- NOTE | 2024-05-03 05:51 | ER ---
Nurse's Notes [facility] Name: Hong Groves Age: 89 yrs Sex: Female : 1935 Arrival Date: 05/03/2024 Time: 03:26 Bed 18 Private MD: Diagnosis: Unspecified atrial fibrillation;NSTEMI, Atrial fibrillation with RVR Presentation: 05/03 03:45 Chief complaint: Patient's son or daughter states: she is not by herself, not rg5 responding clearly and she is too weak to move. 03:45 Coronavirus screen: Vaccine status: Patient reports receiving the 1st dose of the Covid rg5 vaccine. Client denies travel out of the [place] in the last 14 days. Ebola Screen: Patient negative for fever greater than or equal to 101.5 degrees Fahrenheit, and additional compatible Ebola Virus Disease symptoms. Initial Sepsis Screen: Does the patient meet any 2 criteria? No. Patient's initial sepsis screen is negative. Does the patient have a suspected source of infection? No. Patient's initial sepsis screen is negative. Risk Assessment: Do you want to hurt yourself or someone else? Patient reports no desire to harm self or others. Onset of symptoms was May 03, 2024. 03:45 Method Of Arrival: Wheelchair rg5 03:45 Acuity: ARIANNE 3 rg5 Triage Assessment: 03:45 General: Appears uncomfortable, Behavior is drowsy, quiet. Pain: Denies pain. EENT: No rg5 deficits noted. Neuro: Level of Consciousness is confused, unresponsive, Speech is normal, Facial symmetry appears normal, Reports weakness. Cardiovascular: Denies chest pain, shortness of breath, Rhythm is atrial fibrillation. Respiratory: Airway is patent Trachea midline Respiratory effort is even, unlabored, Respiratory pattern is regular, symmetrical. GI: Abdomen is round non-distended. : No signs and/or symptoms were reported regarding the genitourinary system. Derm: Skin is intact, Skin is dry, Skin is normal, Skin temperature is cool. Musculoskeletal: Range of motion: intact in all extremities. Historical: - Allergies: 03:45 Aspirin; rg5 - PMHx: 03:45 Atrial Fib; Dementia; diabetes mellitus; Hyperlipidemia; Hypertension; ANGIOEDEMA; rg5 - PSHx: 03:45 pacemaker (en); rg5 - Immunization history:: Adult Immunizations up to date, Client reports receiving the 2nd dose of the Covid vaccine. - Infectious Disease History:: Denies. - Social history:: Smoking status: Patient denies any tobacco usage or history of. - Family history:: not pertinent. Screenin:00 [facility] ED Fall Risk Assessment (Adult) History of falling in the last 3 months, rg5 including since admission No falls in past 3 months (0 pts) Confusion or Disorientation Yes (5 pts) Intoxicated or Sedated No (0 pts) Impaired Gait Yes (1 pt) Mobility Assist Device Used No (0 pt) Altered Elimination No (0 pt) Score/Fall Risk Level. Abuse screen: Denies threats or abuse. Nutritional screening: No deficits noted. Tuberculosis screening: No symptoms or risk factors identified. Assessment: 04:44 Reassessment: No changes from previously documented assessment. Patient and/or family rg5 updated on plan of care and expected duration. Pain level reassessed. Patient is alert, oriented x 3, equal unlabored respirations, skin warm/dry/pink. 05:30 Reassessment: No changes from previously documented assessment. Patient and/or family rg5 updated on plan of care and expected duration. Pain level reassessed. 06:30 Reassessment: No changes from previously documented assessment. Patient and/or family rg5 updated on plan of care and expected duration. Pain level reassessed. 07:00 Reassessment: RECD REPORT FROM JACQUES LIGHT. 89YO WF P/W AMS AND LETHARGY, ICU ADMIT IN bp PROCESS. 08:00 Reassessment: REPORT TO BRITTANY LIGHT FOR ICU 3. bp Vital Signs: 03:45 BP 145 / 95; Pulse 120; Resp 16; Temp 98.7(O); Pulse Ox 96% on R/A; Weight 58.97 kg; rg5 Height 5 ft. 6 in. ; Pain 0/10; 04:52 BP 139 / 106; Pulse 130; Resp 16; Pulse Ox 96% on 3 lpm NC; rg5 07:00 BP 119 / 86; Pulse 135; Resp 20; Pulse Ox 97% ; bp 08:03 BP 139 / 106; Pulse 118; Resp 18; Pulse Ox 100% ; bp 03:45 Body Mass Index 20.98 (58.97 kg, 167.64 cm) rg5 03:45 Pain Scale: Adult rg5 ED Course: 03:45 Patient arrived in ED. gm2 03:45 Arm band placed on right wrist. EKG completed in triage. Results shown to MD. rg5 03:47 Cipriano Gomez MD is Attending Physician. sp4 03:50 Inserted saline lock: 20 gauge in right antecubital area, using aseptic technique. af3 Blood collected. Flushed with 10 mL NS. 03:51 Verma cath inserted, using sterile technique, 16 Fr., by me, balloon inflated, to af3 gravity drainage, Patient tolerated well. 03:51 EKG done, by ED staff. af3 04:00 No provider procedures requiring assistance completed. rg5 04:00 Patient has correct armband on for positive identification. Fall risk band placed. rg5 Placed in gown. Bed in low position. Side rails up X2. Adult w/ patient. 04:02 Jacques Salazar, RN is Primary Nurse. rg5 04:11 CT Traumagram (Head C Spine CAP wo con) In Process Unspecified. EDMS 04:39 Triage completed. rg5 04:52 Chest Single View XRAY In Process Unspecified. EDMS 05:50 Alfred Crawford MD is Hospitalizing Provider. sp4 07:31 Patient admitted, IV remains in place. bp 07:31 Provided Education on: N/A. bp Administered Medications: 07:19 Discontinued: ns 0.9% (30 ml/kg) 30 ml/kg IV at bolus once; Sepsis Protocol rg5 04:00 Drug: Ondansetron IVP 4 mg IVP once; over 2 minutes Route: IVP; Site: right antecubital;rg5 05:09 Follow up: Response: No adverse reaction rg5 04:00 Drug: Cefepime IVPB 1 grams IVPB at 200 ml/hr once over 30 mins; (mix in NS 100 mL) rg5 Route: IVPB; Rate: 200 ml/hr; Infused Over: 30 mins; Site: right antecubital; 05:10 Follow up: IV Status: Completed infusion; IV Intake: 100ml rg5 04:55 Drug: NS 0.9% IV (30 ml/kg) 30 ml/kg IV at bolus once; Sepsis Protocol Route: IV; Rate: rg5 bolus; Site: right antecubital; 04:58 Drug: Acetaminophen PO 1000 mg PO once Route: PO; rg5 05:10 Follow up: Response: No adverse reaction rg5 05:00 Drug: vancoMYCIN IVPB 1 grams IVPB once over 2 hrs Route: IVPB; Infused Over: 2 hrs; rg5 Site: right antecubital; 07:19 Follow up: IV Status: Completed infusion; IV Intake: 250ml rg5 05:09 Drug: Diltiazem IVP 10 mg IVP once; Over 2 minutes Route: IVP; Site: right antecubital; rg5 07:18 Follow up: Response: No adverse reaction rg5 05:54 Drug: Heparin ([place]-Bolus with thrombolytic) - HEParin IVP 60 units/kg IVP once; Max 4000 rg5 units {Co-Signature: [email or web address] (Jonathan Tracy RN).} Route: IVP; Site: right antecubital; 07:18 Follow up: Response: No adverse reaction rg5 06:07 Drug: Heparin ([place] Drip) 12 units/kg/[place] - ([place] [address] units, D5W IV 500 ml) IV at rg5 calculated rate Per protocol; Max initial rate 1000 units/hr {Co-Signature: [email or web address] (Jonathan Tracy RN).} Route: IV; Rate: calculated rate; Site: right antecubital; 07:29 Drug: Diltiazem IV 5 mg/hr IV at calculated rate See Administration Instructions; bp (standard dilution 125 mg diltiazem mixed in 125 mL NS; final concentration 1mg/mL). Recommended max rate 15 mg/hr; Titrate 5 mg/hr as often as every 15 minutes to achieve goal (see titration policy); Goal parameter HR less than 100 bpm Route: IV; Rate: calculated rate; Site: right hand; Medication: 04:44 VIS not applicable for this client. rg5 Intake: 05:10 IV: 100ml; Total: 100ml. rg5 07:19 IV: 250ml; Total: 350ml. rg5 Outcome: 05:51 Decision to Hospitalize by Provider. sp4 07:30 Admitted to ICU accompanied by alexandru, via stretcher, room 3, with chart, bp 07:30 Condition: stable 07:30 Instructed on the need for admit, 08:03 Admitted to ICU Report called to BRITTANY LIGHT bp 08:30 Patient left the ED. kc6 Signatures: Dispatcher [employer] EDMS Gregorio Antonio RN RN bp Dhara Tapia RN RN kc6 Cipriano Gomez MD MD sp4 Maxine Parra gm2 Jacques Salazar RN RN rg5 Melissa Noriega af3 Jonathan Tracy RN [email or web address] Corrections: (The following items were deleted from the chart) 04:52 03:45 BP 145 / 95; Pulse 99bpm; Resp 16bpm; Pulse Ox 96% RA; Temp 98.7F Oral; 58.97 kg; rg5 Height 5 ft. 6 in.; BMI: 20.9; Pain 0/10, Adult; rg5
[2024-05-03] MEDS ORDERED: HEPARIN/D5W 25,000 UNIT/500 ML BAG IV ONE (05:52)
[2024-05-03] MEDS ORDERED: HEPARIN 5000 UNIT/ML 1 ML VIAL ONE (06:01)
[2024-05-03 07:44] LABS: SARS-CoV-2 Antigen CONTROL BLUE LINE VIS/BG OK; SARS-CoV-2 Antigen Rapid Res Negative (Negative)
[2024-05-03] MEDS ORDERED: ACETAMINOPHEN 325 MG TABLET PO PRN (07:56)
[2024-05-03] MEDS ORDERED: MORPHINE 4 MG/ML SYR IV PRN (07:56)
[2024-05-03] MEDS ORDERED: ONDANSETRON 4 MG/2 ML VIAL IV PRN (07:56)
[2024-05-03] MEDS ORDERED: ALBUTEROL 2.5 MG/3 ML NEB SOL NEB PRN (07:56)
[2024-05-03] MEDS ORDERED: HEPARIN/D5W 25,000 UNIT/500 ML BAG IV SCH ×2 (09:00→12:00)
[2024-05-03] MEDS: NA CHLORIDE 0.9% 1,000 ML IV SCH (09:02)
[2024-05-03] MEDS: AMIODARONE HCL 150 MG in D5W 100 ML IV STA ×2 (09:40→10:11)
[2024-05-03] MEDS ORDERED: AMIODARONE HCL 900 MG in Dextrose 5%-Water 482 ML IV SCH (10:00)
[2024-05-03] MEDS: AMIODARONE HCL 900 MG in Dextrose 5%-Water 482 ML IV SCH (10:11)
[2024-05-03] MEDS: FUROSEMIDE 40 MG/4 ML VIAL IV ONE (16:47)
[2024-05-03] MEDS: FUROSEMIDE 20 MG/ 2ML VIAL IV ONE (17:02)
--- NOTE | 2024-05-03 17:15 | RAD REPORT ---
EXAM DESCRIPTION: RAD - Chest Single View - 05/03/2024 5:08 pm CLINICAL HISTORY: increased RR Chest pain. COMPARISON: <Comparisons> FINDINGS: Portable technique limits examination quality. Moderate sized area of infiltrate is noted in the right base medially, new since prior study. This ma y be related to aspiration pneumonia. The heart is mildly enlarged in size. No displaced fractures.Si ngle lead pacer device present. IMPRESSION: Moderate sized area of infiltrate has developed in the right lung base since earlier dg dy. This could be related to aspiration.
[2024-05-03] MEDS: PIPER TAZO 3.375 GM in NA CHLORIDE 0.9% 100 ML IV SCH ×2 (20:28→20:58)
--- NOTE | 2024-05-03 20:50 | P.HP ---
Patient History Date of Service: 05/03/24 Reason for admission: WEAK, LETHARGIC History of Present Illness: ROBERT IS 89 YEARS OLD LADY WITH A FIB WHO LIVES BETWEEN SON AND DAUGHTER. DAUGHTER PICKED HER UP FROM [place] ABOUT 6 HOURS AWAY. SHE WAS LETHARGIC AND WEAK AT THAT TIME. SHE WAS NOT TALKING. SHE DROVE 6 HOURS AND BROUGHT HER TO ER HERE. ER DOCTOR SAW THAT SHE HAD NY WITH HIGH TROP, RAPID A FIB AND HIGH LACTATE. INITIALLY CT SCANS, UA AND CBC DID NOT SHOW ANY SIGNS OF INFECTION. LATER NURSE CALLED ABOUT 4 THAT HER BREATHING WAS MORE RAPID AND CXR SHOWED ASPIRATION PNEUMONIA. WE STARTED HER ON ZOSYN. MEANWHILE SHE HAS NOW AMIODARONE DRIP AND NOT DILT FOR A FIB. SHE IS NOTABLE TO TALK AND HAS NOT RESPONSIVE. Allergies aspirin Allergy (Verified 06/02/14 02:05) Anaphylaxis Home medications list reviewed: Yes Home Medications: Atorvastatin Calcium 20 mg PO BEDTIME 03/31/24 Furosemide 40 mg PO DAILY 03/31/24 Glipizide [Glucotrol Xl] 10 mg PO SEECOM 03/31/24 Rivaroxaban [Xarelto] 20 mg PO DAILY 03/31/24 Sotalol HCl [Betapace*] 80 mg PO BID 6AM 6PM #60 tab 04/03/24 Spironolactone [Aldactone*] 50 mg PO DAILY #90 tab 04/03/24 cloNIDine HCL [Catapres*] 0.1 mg PO BID #60 tab 04/03/24 - Past Medical/Surgical History Has patient received pneumonia vaccine in the past: Yes Diabetic: Yes -: HTN -: Afib -: CAD -: high cholesterol -: skin Cancer -: CHF -: cardiac stent x2 -: hysterectomy -: benign tumors removed L breast -: carpal tunnel sx nikita wrists -: foriegn object removed from stomach as child -: arthoscopic sx nikita knee sx -: benign brain tumor removed -: heart valve surgery - Family History Father -: Heart disease, GI disease Mother -: Heart disease - Social History Smoking Status: Never smoker Alcohol use: No CD- Drugs: No Caffeine use: No Place of Residence: Home Review of Systems is unable to be obtained General: Weakness Physical Examination - Vital Signs Temperature: 98.3 F Blood Pressure: 109/76 Pulse: 103 Respirations: 28 Pulse Ox (%): 93 - Physical Exam General: Unresponsive HEENT: Atraumatic, PERRLA, Mucous membr. moist/pink, EOMI, Sclerae nonicteric Neck: Supple, 2+ carotid pulse no bruit, No LAD, Without JVD or thyroid abnormality Respiratory: Diminished Cardiovascular: Irregular heart rate/rhythm Gastrointestinal: Normal bowel sounds, No tenderness Musculoskeletal: No tenderness Integumentary: No rashes Neurological: Other (RAPID BREATHING, NOT RESPONSIVE TO VERBAL COMMAND. EYES ARE OPEN BUT SHE IS NOT COMMUNICATIVE. PUPILS SLUGGISH.) Lymphatics: No axilla or inguinal lymphadenopathy - Studies Laboratory Data (last 24 hrs) 05/03/24 05/03/24 05/03/24 03:45 03:45 03:45 WBC 8.20 Hgb 15.1 H Hct 47.2 H Plt Count 226 PT 11.6 INR 1.04 APTT 28.5 Sodium 134 L Potassium 5.2 H BUN 38 H Creatinine 1.73 H Glucose 214 H Total Bilirubin 1.3 H AST 21 ALT 28 Alkaline Phosphatase 103 Microbiology Data (last 24 hrs): 05/03/24 03:45 Blood - Blood Anaerobic Blood Culture - Final 05/03/24 04:00 Blood - Blood Anaerobic Blood Culture - Final Assessment and Plan - Problems (Diagnosis) (1) Acute NY, subendocardial Current Visit: Yes Status: Acute Plan: HEPARIN DRIP WILL DC CONTINUE LOVENOX. SHE IS COMATOSE AND ENDSTAGE NOT A CANDIDATE FOR ANGIOGRAM. FAMILY- DAUGHTER AT BEDSIDE AND AGREES. SHE WANTED DNR STATUS AND HOSPICE. (2) Aspiration pneumonia Current Visit: Yes Status: Acute Plan: THIS MAY BE FROM CVA RELATED ASPIRATION. (3) Sepsis Current Visit: Yes Status: Acute Plan: IV ZOSYN. PROGNOSIS POOR TERMINAL. (4) Rapid atrial fibrillation Current Visit: No Status: Chronic (5) Weakness Current Visit: No Status: Acute (6) CVA (cerebral vascular accident) Current Visit: Yes Status: Acute Plan: SHE MAY HAVE HAD A STROKE A FEW DAYS AGO CT NEG MRI NOT POSSIBLE ON WEEKEND SHE IS UNRESPONSIVE. RAPID BREATHING HOSPICE PER FAMILY. - Advance Directives Does patient have a Living Will: No Does patient have a Durable POA for Healthcare: Yes
[2024-05-04 04:20] VITALS: BMI 22.7
[2024-05-04 05:28] LABS: Albumin 3.1 g/dL (3.4-5.0); Albumin/Globulin Ratio 0.8 (1.1-1.8); Anion Gap 18.6 mEq/L (5.0-15.0); Bilirubin Direct 0.6 mg/dL (0-0.2); Bilirubin Indirect, Calculated 1.1 mg/dL (0.2-0.8); Bilirubin Total 1.7 mg/dL (0.2-1.0); Globulin 3.7 g/dL (2.3-3.5); Protein, Total 6.8 g/dL (6.4-8.2)
[2024-05-04 05:37] LABS: Potassium 6.6 mEq/L (3.5-5.1)
[2024-05-04 09:19] VITALS: O2SAT 91
[2024-05-04] MEDS ORDERED: AMIODARONE HCL 900 MG in Dextrose 5%-Water 482 ML IV SCH (10:00)
[2024-05-04 10:10] VITALS: BP 92/61; TEMP 97
--- NOTE | 2024-05-04 11:44 | RAD REPORT ---
EXAM DESCRIPTION: XR CHEST 1 VIEW CLINICAL HISTORY: CHEST PAIN COMPARISON: None. TECHNIQUE: XR CHEST 1 VIEW 05/03/2024 3:48 AM CDT FINDINGS: Heart is mildly enlarged. Left single-chamber pacemaker is present. Lungs are clear withou t consolidation, atelectasis, mass or edema. There is no pleural effusion. There is no pneumothorax. There are no acute osseous findings. IMPRESSION: No pneumonia. Electronically signed by: John Jeffery MD 05/03/2024 05:26 AM CDT RP Due to temporary technical issues with the PACS/Fluency reporting system, reports are being signed by the in house radiologist without review as a courtesy to ensure prompt reporting. The interpreting r adiologist is fully responsible for the content of the report.
--- NOTE | 2024-05-04 11:45 | RAD REPORT ---
EXAM DESCRIPTION: CT HEAD CERVICAL SPINE CHEST ABDOMEN PELVIS WITHOUT IV CONTRAST CLINICAL HISTORY: AMS COMPARISON: None. TECHNIQUE: CT HEAD CERVICAL SPINE CHEST ABDOMEN PELVIS WITHOUT IV CONTRAST on 05/03/2024 3:49 AM CDT This exam was performed according to our departmental dose-optimization program, which includes autom ated exposure control, adjustment of the mA and/or kV according to patient size and/or use of iterati ve reconstruction technique. FINDINGS: Brain: There is no acute hemorrhage, mass effect or midline shift. There is posterior left cerebellar encephalomalacia. There is no hydrocephalus. There is no significant volume loss for age. Posterior left parietal craniotomy was performed. Orbits and globes are unremarkable. The paranasal s inuses are clear. Mastoid air cells are clear. Cervical Spine: There is no acute fracture. Alignment is anatomic. There is mild bilateral diffuse fa cet arthritis. There is mild narrowing of the C3-4, C4-5, C5-6 and C6-7 discs. Vertebral body heights are preserved. Soft tissues are unremarkable. Chest: The heart is borderline in size. Left pacemaker is present. There is no pericardial effusion. Intrathoracic lymph nodes are not enlarged. There are calcified pleural plaques anteriorly on the right. There is a trace right pleural effusion. Central airways are patent. There is a 3 mm medial right upper lobe pulmonary nodule. Abdomen: There are several tiny subcentimeter cysts in the anterior liver. Low-density lesion in the more central anterior right lobe of the liver measures 4.6 cm. There is no biliary dilatation. Gallbl adder is normal in appearance. The pancreas and spleen are normal in appearance. Adrenal glands are n ormal. Kidneys are mildly atrophic. Abdominal aorta is densely calcified without aneurysm. There is no free air. There is no retroperiton eal adenopathy. Pelvis: There is no bowel obstruction. Urinary bladder is decompressed with a Verma catheter. There i s no free fluid. Hysterectomy was performed. Appendix is normal. Skeleton: There are no acute osseous findings. No suspicious bony lesions. IMPRESSION: No acute intracranial findings. No acute fracture or subluxation of the cervical spine. Indeterminate low-density lesion in the right lobe of the liver. Recommend nonemergent ultrasound. Right solid pulmonary nodule within the upper lobe measuring 3 mm. Per Fleischner Society Guidelines, if patient is low risk for malignancy, no routine follow-up imaging is recommended. If patient is hi gh risk for malignancy, a non-contrast Chest CT at 12 months is optional. If performed and the nodule is stable at 12 months, no further follow-up is recommended. These guidelines do not apply to immunocompromised patients and patients with cancer. Follow up in pa tients with significant comorbidities as clinically warranted. For lung cancer screening, adhere to L matteo-RADS guidelines. Reference: Radiology. 2017; 284(1):228-43. Electronically signed by: John Jeffery MD 05/03/2024 05:25 AM CDT RP Due to temporary technical issues with the PACS/Fluency reporting system, reports are being signed by the in house radiologist without review as a courtesy to ensure prompt reporting. The interpreting r adiologist is fully responsible for the content of the report.
--- NOTE | 2024-05-04 14:02 | P.PN ---
Subjective Date of Service: 05/04/24 Chief Complaint: COMATOSE LAST NIGHT WE HAD A DISCUSSION WITH DAUGHTER ABOUT HER POOR CONDITION AND TO GET HER ON HOSPICE THIS AM. SHE AFTER I SAW HER THIS AM IN THE PROCESS OF GETTING ON HOSPICE EXPECTED. I CALLED THE DAUGHTER BEFORE SHE THAT WE HAVE STARTED THE HOSPICE PROCESS. Physical Examination - Vital Signs Temperature: 97.0 F Blood Pressure: 92/61 Pulse: 87 Respirations: 35 Pulse Ox (%): 91 - Studies Microbiology Data (last 24 hrs): 05/03/24 04:00 Blood - Blood Anaerobic Blood Culture - Final 05/03/24 03:45 Blood - Blood Anaerobic Blood Culture - Final Assessment And Plan - Current Problems (Diagnosis) (1) Acute MD, subendocardial Status: Acute Plan: HEPARIN DRIP WILL DC CONTINUE LOVENOX. SHE IS COMATOSE AND ENDSTAGE NOT A CANDIDATE FOR ANGIOGRAM. FAMILY- DAUGHTER AT BEDSIDE AND AGREES. SHE WANTED DNR STATUS AND HOSPICE. (2) Aspiration pneumonia Status: Acute Plan: THIS MAY BE FROM CVA RELATED ASPIRATION. (3) Sepsis Status: Acute Plan: IV ZOSYN. PROGNOSIS POOR TERMINAL. (4) Rapid atrial fibrillation Status: Chronic (5) Weakness Status: Acute (6) CVA (cerebral vascular accident) Status: Acute Plan: SHE MAY HAVE HAD A STROKE A FEW DAYS AGO CT NEG MRI NOT POSSIBLE ON WEEKEND SHE IS UNRESPONSIVE. RAPID BREATHING HOSPICE PER FAMILY.
[2024-05-04] MEDS ORDERED: ENOXAPARIN 30 MG/0.3 ML SQ SCH (17:00)
--- NOTE | 2024-05-05 12:43 | EKG ---
Test Date: 2024-05-03 Test Time: 03:46:38 Clinical Data Programmer: AF MEASUREMENT RESULTS: Intervals: Rate: 123 KS: QRSD: 92 QT: 330 QTc: 472 Ronda: P: KS: QRS: 79 T: 135 INTERPRETIVE STATEMENTS: Atrial fibrillation Septal infarct, age undetermined Abnormal ECG Compared to ECG 05/03/2024 03:45:46 Myocardial infarct finding now present Ventricular premature complex(es) no longer present ST (T wave) deviation no longer present Electronically Signed On 05-05-24 12:40:22 CDT by Chris Romano
--- NOTE | 2024-05-05 12:44 | EKG ---
Test Date: 2024-05-03 Test Time: 03:45:46 Taxicab Driver: AF MEASUREMENT RESULTS: Intervals: Rate: 95 VT: QRSD: 38 QT: 346 QTc: 434 Fackler: P: VT: QRS: 81 T: 152 INTERPRETIVE STATEMENTS: Poor data quality, interpretation may be adversely affected Atrial fibrillation with premature ventricular or aberrantly conducted complexes Low voltage QRS Nonspecific ST and T wave abnormality, probably digitalis effect Abnormal ECG Compared to ECG 04/03/2024 10:14:51 Low QRS voltage now present ST (T wave) deviation now present Junctional rhythm no longer present Fusion complex(es) no longer present T-wave abnormality no longer present Possible ischemia no longer present Prolonged QT interval no longer present Electronically Signed On 05-05-24 12:40:32 CDT by Chris Romano
--- NOTE | 2024-05-10 09:40 | P.DS ---
Admission Date: 05/03/24 Discharge Date: 05/10/24 Disposition: Discharge Condition: Reason for Admission: COMATOSE - Problems (1) Acute MN, subendocardial Status: Acute (2) Aspiration pneumonia Status: Acute (3) Sepsis Status: Acute (4) Rapid atrial fibrillation Status: Chronic (5) Weakness Status: Acute (6) CVA (cerebral vascular accident) Status: Acute Brief History of Present Illness: ROBERT IS 89 YEARS OLD LADY WITH A FIB WHO LIVES BETWEEN SON AND DAUGHTER. DAUGHTER PICKED HER UP FROM [place] ABOUT 6 HOURS AWAY. SHE WAS LETHARGIC AND WEAK AT THAT TIME. SHE WAS NOT TALKING. SHE DROVE 6 HOURS AND BROUGHT HER TO ER HERE. ER DOCTOR SAW THAT SHE HAD MN WITH HIGH TROP, RAPID A FIB AND HIGH LACTATE. INITIALLY CT SCANS, UA AND CBC DID NOT SHOW ANY SIGNS OF INFECTION. LATER NURSE CALLED ABOUT 4 THAT HER BREATHING WAS MORE RAPID AND CXR SHOWED ASPIRATION PNEUMONIA. WE STARTED HER ON ZOSYN. MEANWHILE SHE HAS NOW AMIODARONE DRIP AND NOT DILT FOR A FIB. SHE IS NOTABLE TO TALK AND HAS NOT RESPONSIVE. Hospital Course: ROBERT IS FRAIL ELDERLY LADY WHO LIVES BETWEEN DAUGHTER AND SON ABOUT SIX HOURS AWAY. DAUGHTER PICKED HER UP FROM SON'S HOME ABOUT 6 HOURS AWAY BUT SHE DID NOT LOOK RIGHT SO SHE BROUGHT HER STRAIGHT TO ER. SHE HAS HAD AN MN, A FIB, REMAINED UNRESPONSIVE AND LATER HAD DYSPNEA. SHE POSSIBLY ALSO HAD A STROKE SOMETIME. SHE BEING TERMINAL IN CONDITION WE DID NOT PURSUE MRI. SHE WAS TO BE PLACED ON HOSPICE SHE FAILED TO WAKE UP AND RAPIDLY GOT WORSE. SHE EXPECTED BEFORE HOSPICE WAS IN PLACE. Vital Signs/Physical Exam: Temp Pulse Resp BP Pulse Ox 97.0 F 87 35 H 92/61 91 05/04/24 14:01 05/04/24 14:01 05/04/24 14:01 05/04/24 14:01 05/04/24 14:01 Laboratory Data at Discharge: WBC 8.20 thou/uL (4.3-10.9) 05/03/24 03:45 Hgb 15.1 g/dL (12.0-15.0) H 05/03/24 03:45 Hct 47.2 % (36.0-45.0) H 05/03/24 03:45 Plt Count 226 thou/uL (152-406) 05/03/24 03:45 PT 11.6 SECONDS (9.4-12.5) 05/03/24 03:45 INR 1.04 05/03/24 03:45 APTT 42.6 SECONDS (24.3-36.9) H 05/04/24 04:04 Sodium 132 mEq/L (136-145) L 05/04/24 04:04 Potassium 6.6 mEq/L (3.5-5.1) H* D 05/04/24 04:04 BUN 66 mg/dL (7-18) H 05/04/24 04:04 Creatinine 3.36 mg/dL (0.55-1.02) H 05/04/24 04:04 Glucose 282 mg/dL (74-106) H 05/04/24 04:04 Total Bilirubin 1.7 mg/dL (0.2-1.0) H 05/04/24 04:04 AST 6999 U/L (15-37) H 05/04/24 04:04 ALT 3331 U/L (13-56) H 05/04/24 04:04 Alkaline Phosphatase 79 U/L (45-117) D 05/04/24 04:04 Home Medications: Atorvastatin Calcium 20 mg PO BEDTIME 03/31/24 Furosemide 40 mg PO DAILY 03/31/24 Glipizide [Glucotrol Xl] 10 mg PO SEECOM 03/31/24 Rivaroxaban [Xarelto] 20 mg PO DAILY 03/31/24 Sotalol HCl [Betapace*] 80 mg PO BID 6AM 6PM #60 tab 04/03/24 Spironolactone [Aldactone*] 50 mg PO DAILY #90 tab 04/03/24 cloNIDine HCL [Catapres*] 0.1 mg PO BID #60 tab 04/03/24 Followup: Alfred Crawford MD [Primary Care Provider] -
== END 2024-05-04 11:18 | disposition expired | DRG 871 ==
LOC: ER 03:26 → ERHOLD 05:15 → 3RD-ICU 06:22
PROVIDERS: ADMIT Internal Medicine; ATTEND Internal Medicine
PROC: 4A033R1 Measurement of Arterial Saturation, Peripheral, Percutaneous Approach (ICD-10-PCS; principal; 2024-05-03)
DX: A41.9 Sepsis, unspecified organism (principal); I21.4 Non-ST elevation (NSTEMI) myocardial infarction; J69.0 Pneumonitis due to inhalation of food and vomit; R40.20 Unspecified coma; I48.20 Chronic atrial fibrillation, unspecified; I10 Essential (primary) hypertension; E11.9 Type 2 diabetes mellitus without complications; E78.00 Pure hypercholesterolemia, unspecified; I25.10 Atherosclerotic heart disease of native coronary artery without angina pectoris; Z66 Do not resuscitate; Z51.5 Encounter for palliative care; Z95.0 Presence of cardiac pacemaker; Z88.2 Allergy status to sulfonamides; Z95.5 Presence of coronary angioplasty implant and graft; Z11.52 Encounter for screening for COVID-19; Z79.84 Long term (current) use of oral hypoglycemic drugs; Z86.73 Personal history of transient ischemic attack (TIA), and cerebral infarction without residual deficits; Z79.899 Other long term (current) drug therapy; Z90.710 Acquired absence of both cervix and uterus; Z85.828 Personal history of other malignant neoplasm of skin
CPT/HCPCS: 36415; 36600; 51702; 70450; 71045; 71250; 72125; 80048; 80053; 80076; 81001; 82550; 82805; 82947; 83605; 83880; 84443; 84484; 85025; 85610; 85730; 86140; 87040; 87811; 93005; 94760; 99285; J0282; J0692; J1644; J1940; J2405; J2543; J7030; J7050; J7060